=== PATIENT | male | born 1960 | race Caucasian/White ===

== ENCOUNTER → 2016-12-16 | Outpatient (REF) ==
--- NOTE | 2016-12-16 15:31 | REP ---
Clinical: Pain. Technique: AP, lateral, bilateral oblique and sunrise views of the left knee. Findings: The patient is status post arthroplasty with normal appearance in positioning to the femoral and tibial components as well as appropriate joint space. The posterior inferior osteophytes are identified involving the patella. Small effusion cannot be excluded. No acute fracture dislocation. Impression: Posterior inferior osteophytes along the patella may be related to patient's symptoms. Femur and tibia appear relatively normal. Signed by Jaron Cedillo MD 12/16/2016 03:22 P
== END ==
LOC: M SMT 14:07
PROVIDERS: ATTEND Internal Medicine
DX: Z02.71 Encounter for disability determination (principal); M25.762 Osteophyte, left knee